=== PATIENT | male | born 1995 | race Caucasian/White ===

== ENCOUNTER 2023-03-30 07:42 | Emergency (ER) | payer OTHER ==
[~2023-03-30] VITALS: Ht 175.3 cm; Wt 59.0 kg
[2023-03-30] MEDS ORDERED: AMOX1TAB5 PO (10:40)
[2023-03-30] MEDS ORDERED: ZITHROMAX500 MG PO (10:42)
== END 2023-03-30 10:51 | disposition home or self-care (01) ==
LOC: ER 07:42
DX: J02.9 Acute pharyngitis, unspecified (principal); R53.81 Other malaise; R50.9 Fever, unspecified; Z20.822 Contact with and (suspected) exposure to COVID-19

== ENCOUNTER 2023-05-07 00:18 | Emergency (ER) | payer OTHER ==
[~2023-05-07] VITALS: Ht 177.8 cm; Wt 59.0 kg
[~2023-05-07 00:18] MED LIST: AMOX1TAB5 PO; ZITHROMAX500 MG PO
== END 2023-05-07 04:54 | disposition home or self-care (01) ==
LOC: ER 00:18
DX: J06.9 Acute upper respiratory infection, unspecified (principal)